=== PATIENT | female | born 1980 | race Caucasian/White ===

== ENCOUNTER 2017-01-22 20:22 | Emergency (ER) | payer BC ==
[~2017-01-22] VITALS: Ht 162.6 cm; Wt 118.2 kg
[2017-01-22 20:38] VITALS: BP 179/80; TEMP 98.5
[2017-01-22 23:23] LABS: PH 5 (5-8); URINE APPEARANCE Hazy; URINE BACTERIA Rare /hpf; URINE BILIRUBIN Negative (NEGATIVE); URINE BLOOD Negative (NEGATIVE); URINE COLOR Yellow; URINE GLUCOSE Negative (NEGATIVE); URINE KETONE 2+ (NEGATIVE); URINE RBC 0-2 /hpf; URINE UROBILINOGEN Negative (NEGATIVE); URINE WBC 0-2 /hpf
[2017-01-22] MEDS ORDERED: NORCO 325 MG-7.1 TAB PO (23:35)
[2017-01-23 00:21] VITALS: PULSE 78
== END 2017-01-23 00:23 | disposition home or self-care (01) ==
LOC: COL.ER 20:22
PROVIDERS: Nurse Practitioner
DX: M54.5 Low back pain (principal)
CPT/HCPCS: J3360

== ENCOUNTER → 2020-11-30 | Outpatient (CLI) | payer BC ==
[~2020-11-30] MED LIST: NORCO 325 MG-7.1 TAB PO
== END ==
LOC: MC.RAD 17:00
DX: Z12.31 Encounter for screening mammogram for malignant neoplasm of breast (principal)

== ENCOUNTER 2021-08-17 05:19 | Day surgery (SDC) | payer BC ==
[~2021-08-17] VITALS: Ht 162.6 cm; Wt 135.8 kg
[2021-08-17] VITALS (13 sets, daily range): BP systolic 111–1457; BP diastolic 57–88; PULSE 68–96; TEMP 97.7–98.8
--- NOTE | 2021-08-17 06:11 | NUR ---
Scopolamine patch placed behind right ear.
[2021-08-17] MEDS ORDERED: ALDACTONE 100M100 MG PO (06:22)
[2021-08-17] MEDS ORDERED: SINGULAIR 110 MG/TAB PO (06:23)
[2021-08-17] MEDS ORDERED: OTEZLA PO (06:23)
[2021-08-17] MEDS ORDERED: MASON NATURAL2000 IU PO (06:24)
[2021-08-17] MEDS ORDERED: MAGNESIUM ELEM300 MG PO (06:24)
[2021-08-17] MEDS ORDERED: MOTRIN 800800 MG/TAB PO (09:28)
[2021-08-17] MEDS ORDERED: PERCOCET 325 MG1 TA2 PO (09:28)
--- NOTE | 2021-08-17 11:39 | NUR ---
PATIENT TO ROOM 222, REPORT FROM KIT AT 1037
[2021-08-18 03:30] VITALS: BP 109/60; PULSE 83; TEMP 97.7
[2021-08-18 08:50] VITALS: BP 131/81; PULSE 78; TEMP 98.1
--- NOTE | 2021-08-18 11:34 | NUR ---
1115 TIA DC'D AND ALL DISCHARGE INSTRUCTIONS GIVEN TO PATIENT WITH VERBAL UNDERSTANDING. DENIES NNEDS. DISMISS TO POV VIA WHEELCHAIR.
== END 2021-08-18 11:37 | disposition home or self-care (01) ==
LOC: SDCO 05:19 → OB 10:37 → SDCO 08-18 11:37
PROVIDERS: Obstetrics & Gynecology
DX: D25.1 Intramural leiomyoma of uterus (principal); D25.0 Submucous leiomyoma of uterus; D25.2 Subserosal leiomyoma of uterus; N92.0 Excessive and frequent menstruation with regular cycle; K42.9 Umbilical hernia without obstruction or gangrene; R73.03 Prediabetes; E78.5 Hyperlipidemia, unspecified; J30.9 Allergic rhinitis, unspecified; E66.9 Obesity, unspecified; Z90.89 Acquired absence of other organs; Z79.899 Other long term (current) drug therapy; Z80.3 Family history of malignant neoplasm of breast; Z80.8 Family history of malignant neoplasm of other organs or systems; Z83.3 Family history of diabetes mellitus
CPT/HCPCS: OP; A4314; C1781; J0690; J1100; J1170; J1885; J2405; J2704; J2710; J3010; J7120

== ENCOUNTER → 2022-01-08 | Outpatient (CLI) | payer BC ==
[~2022-01-08] MED LIST changes: +ALDACTONE 100M100 MG PO; +MAGNESIUM ELEM300 MG PO; +MASON NATURAL2000 IU PO; +MOTRIN 800800 MG/TAB PO; +OTEZLA PO; +PERCOCET 325 MG1 TA2 PO; +SINGULAIR 110 MG/TAB PO
== END ==
LOC: MC.RAD 13:09
DX: Z12.31 Encounter for screening mammogram for malignant neoplasm of breast (principal)